=== PATIENT | female | born 1975 | race Caucasian/White ===

== ENCOUNTER 2017-06-25 13:02 | Inpatient (IN) | payer OTHER ==
[2017-06-25 13:27] VITALS: BMI 29.0
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
[2017-06-25] MEDS ORDERED: P-EPHED 60MG/TRIPROLIDI 2.5MG TABLET PO PRN (14:38)
[2017-06-25] MEDS ORDERED: MAGNESIUM CITRATE 300 ML BOTTLE PO PRN (14:38)
[2017-06-25] MEDS ORDERED: MENTHOL/PHENOL 1 EACH UD MM PRN (14:38)
[2017-06-25] MEDS ORDERED: guaiFENesin/D-METHORPHAN HB 10 ML UNIT-DOSE CUPS PO PRN (14:38)
[2017-06-25] MEDS ORDERED: LOPERAMIDE HCL 2 MG CAPSULE PO PRN (14:38)
[2017-06-25] MEDS ORDERED: MAGNESIUM HYDROX 2400MG/30ML ORAL SUSPENSION 30 ML CUP PO PRN (14:38)
[2017-06-25] MEDS ORDERED: MAG HYDROX/AL HYDROX/SIMETH 30 ML UNIT-DOSE CUP PO PRN (14:38)
[2017-06-25] MEDS ORDERED: hydrOXYzine PAMOATE 50 MG CAPSULE (FP) PO PRN (14:38)
[2017-06-25] MEDS ORDERED: chlordiazePOXIDE HCL 25 MG CAPSULE PO ONE (15:01)
[2017-06-25] MEDS ORDERED: METHADONE HCL 10 MG TABLET (FOR DETOX USE ONLY) PO ONE ×2 (15:01→23:00)
[2017-06-25] MEDS: chlordiazePOXIDE HCL 25 MG CAPSULE PO SCH ×2 (17:18→22:05)
[2017-06-25] MEDS: NICOTINE 21 MG/24 HOURS TOPICAL PATCH TD SCH (17:24)
[2017-06-25] MEDS: diphenhydrAMINE HCL 50 MG CAPSULE PO PRN (22:05)
[2017-06-25] MEDS: THIAMINE HCL 100 MG TABLET (FP) PO SCH (22:05)
[2017-06-25 23:30] LABS: URINE APPEARANCE CLEAR; URINE BILIRUBIN NEGATIVE (NEGATIVE); URINE BLOOD NEGATIVE (NEGATIVE); URINE COLOR LTYELLOW; URINE GLUCOSE (UA) NEGATIVE (NEGATIVE); URINE KETONE NEGATIVE (NEGATIVE); URINE LEUK ESTERASE NEGATIVE (NEGATIVE); URINE NITRITE NEGATIVE (NEGATIVE); URINE PROTEIN NEGATIVE (NEGATIVE); URINE UROBILINOGEN NEGATIVE mg/dL (0.2-1.0)
[2017-06-26] MEDS: IBUPROFEN 400 MG TABLET (FP) PO PRN ×2 (04:18→10:43)
[2017-06-26] MEDS: chlordiazePOXIDE HCL 25 MG CAPSULE PO PRN (04:18)
[2017-06-26] MEDS: chlordiazePOXIDE HCL 25 MG CAPSULE PO SCH ×4 (05:14→22:03)
[2017-06-26] MEDS: VERAPAMIL HCL 40 MG TABLET (FP) PO SCH (06:20)
--- NOTE | 2017-06-26 09:32 | CONSULT ---
[facility] Psychiatric Consult - Data Date of interview: 06/26/17 Admission source: [facility] Identifying data: This is 41 years old female with no psychiatric hospitalization history intoxicated with: Alcohol, Crack, Opioids and Nicotine Substance Abuse History: - Smoking Cessation. Smoking history: Current every day smoker. Have you smoked in the past 12 months: Yes. Aproximately how many cigarettes per day: 20. Hx Chewing Tobacco Use: No. Initiated information on smoking cessation: Yes. 'Breaking Loose' booklet given: 06/25/17. - Substance & Tx. History. Hx Alcohol Use: Yes. Hx Substance Use: Yes. Substance Use Type : Alcohol, Cocaine, Heroin. Hx Substance Use Treatment: Yes ([facility] to 05/01/17). - Substances Abused. Heroin. Route: Inhalation. Frequency: Daily. Amount used: 20 bags. Age of first use: 41. Date of Last Use: 06/24/17. Alcohol. Route: Oral. Frequency: Daily. Amount used: 4-5 24 oz beers. Age of first use: 18. Date of Last Use: 06/23/17. Crack. Route: Smoking. Frequency: Daily. Amount used: $20. Age of first use: 39. Date of Last Use: 06/23/17 Medical History: HTN, LBP, Psychiatric History: Patient reports history of depression and anxiety, reports no medications taking prior to admission Physical/Sexual Abuse/Trauma History: Denies Additional Comment: Observation. [facility] Care Protocol Mental Status Exam - Mental Status Exam Alert and Oriented to: Person Cognitive Function: Fair Patient Appearance: Unkempt Mood: Sad Affect: Flat Patient Behavior: Sedated Speech Pattern: Delayed Voice Loudness: Mildly Soft/Quiet Thought Process: Circumstantial Thought Disorder: Being Controlled Hallucinations: Denies Suicidal Ideation: Denies Homicidal Ideation: Denies Insight/Judgement: Fair Sleep: Difficulty falling asleep Appetite: Fair Muscle strength/Tone: Normal Gait/Station: Shuffling Additional Comments: Observation. [facility] Care Protocol Psychiatric Findings - Problem List ([place] 1, 2,3) (1) Alcohol dependence with uncomplicated withdrawal Current Visit: Yes Status: Acute (2) Anxiety and depression Current Visit: Yes Status: Acute (3) Opioid dependence with withdrawal Current Visit: Yes Status: Acute (4) Nicotine dependence Current Visit: Yes Status: Acute (5) Drug-induced mood disorder Current Visit: Yes Status: Acute - Initial Treatment Plan Initial Treatment Plan: Observation. [facility] Care Protocol
[2017-06-26] MEDS ORDERED: METHADONE HCL 10 MG TABLET (FOR DETOX USE ONLY) PO SCH (10:00)
[2017-06-26 10:14] LABS: ALBUMIN 3.8 g/dl (3.4-5.0); ALK PHOS 61 U/L (45-117); ANION GAP 8 (8-16); BILIRUBIN,TOTAL 0.3 mg/dL (0.2-1.0); CALCIUM 9.4 mg/dL (8.5-10.1); CO2 26 mmol/L (21-32); CREATININE 0.9 mg/dL (0.55-1.02); GLUCOSE,RANDOM 97 mg/dL (74-106); SGOT/AST 12 U/L (15-37); SGPT/ALT 19 U/L (12-78)
[2017-06-26 10:19] LABS: MEAN CELL VOLUME 58.9 fl (80-96); PLATELET COUNT 281 K/MM3 (134-434); RDW 19.4 % (11.6-15.6); WHITE BLOOD COUNT 7.9 K/mm3 (4.0-10.0)
[2017-06-26 10:24] LABS: MCH 18.9 pg (25.7-33.7)
[2017-06-26] MEDS: LISINOPRIL 10 MG TABLET (FP) PO SCH (10:43)
[2017-06-26] MEDS: NICOTINE 21 MG/24 HOURS TOPICAL PATCH TD SCH (10:44)
[2017-06-26] MEDS: PRENATAL VITAMINS W/ FOLIC ACID TABLET (FP) PO SCH (10:44)
[2017-06-26] MEDS: NICOTINE POLACRILEX 2 MG GUM BUC PRN (10:45)
[2017-06-26] MEDS ORDERED: RANITIDINE HCL 150 MG TABLET (FP) PO ONE (10:46)
[2017-06-26] MEDS ORDERED: NAPROXEN 500 MG TABLET (FP) PO ONE (10:46)
[2017-06-26 11:10] LABS: ANISOCYTOSIS 1+; HYPOCHROMIA 1+; PLATELET ESTIMATE ADEQUATE (NORMAL)
[2017-06-26 11:11] LABS: MICROCYTOSIS 1+; OVALOCYTES 1+
[2017-06-26] MEDS: LIDOCAINE 5% TOPICAL PATCH TP SCH (11:20)
[2017-06-26] MEDS: CYCLOBENZAPRINE HCL 10 MG TABLET (FP) PO PRN ×2 (11:43→22:03)
--- NOTE | 2017-06-26 12:59 | EKG ---
Test Reason : Blood Pressure : / mmHG Vent. Rate : 074 BPM Atrial Rate : 074 BPM P-R Int : 132 ms QRS Dur : 090 ms QT Int : 390 ms P-R-T Axes : 042 060 062 degrees QTc Int : 432 ms NORMAL SINUS RHYTHM NORMAL ECG NO PREVIOUS ECGS AVAILABLE Confirmed by CADY MILLER, MICHAEL ([id number]) on 06/26/2017 12:59:12 PM Referred By: Francois Lazaro Confirmed By:MICHAEL LAZAR MD
[2017-06-26] MEDS: LIDOCAINE PATCH REMOVAL MC SCH (21:51)
[2017-06-26] MEDS: diphenhydrAMINE HCL 50 MG CAPSULE PO PRN (22:03)
[2017-06-26] MEDS: NAPROXEN 500 MG TABLET (FP) PO SCH (22:03)
[2017-06-26] MEDS: THIAMINE HCL 100 MG TABLET (FP) PO SCH (22:04)
[2017-06-26] MEDS: RANITIDINE HCL 150 MG TABLET (FP) PO SCH (22:05)
[2017-06-27] MEDS: CYCLOBENZAPRINE HCL 10 MG TABLET (FP) PO PRN ×3 (05:14→22:13)
[2017-06-27] MEDS: NICOTINE POLACRILEX 2 MG GUM BUC PRN ×3 (05:14→14:11)
[2017-06-27] MEDS: chlordiazePOXIDE HCL 25 MG CAPSULE PO SCH ×2 (05:14→10:08)
[2017-06-27] MEDS: ACETAMINOPHEN 325 MG TABLET (FP) PO PRN (05:15)
[2017-06-27] MEDS: VERAPAMIL HCL 40 MG TABLET (FP) PO SCH (07:30)
[2017-06-27] MEDS: PRENATAL VITAMINS W/ FOLIC ACID TABLET (FP) PO SCH (10:07)
[2017-06-27] MEDS: METHADONE HCL 5 MG TABLET (FOR DETOX USE ONLY) PO SCH (10:07)
[2017-06-27] MEDS: RANITIDINE HCL 150 MG TABLET (FP) PO SCH ×2 (10:08→22:14)
[2017-06-27] MEDS: LISINOPRIL 10 MG TABLET (FP) PO SCH (10:08)
[2017-06-27] MEDS: NAPROXEN 500 MG TABLET (FP) PO SCH ×2 (10:09→22:14)
[2017-06-27] MEDS: NICOTINE 21 MG/24 HOURS TOPICAL PATCH TD SCH (10:10)
[2017-06-27] MEDS: LIDOCAINE 5% TOPICAL PATCH TP SCH (10:10)
--- NOTE | 2017-06-27 11:35 | PN ---
[facility] CIWA - CIWA Score Nausea/Vomitin-No Nausea/No Vomiting Muscle Tremors: 4-Moderate,w/Arms Extend Anxiety: 3 Agitation: 4-Moderately Restless Paroxysmal Sweats: 3 Orientation: 0-Oriented Tacttile Disturbances: 0-None Auditory Disturbances: 0-None Visual Disturbances: 0-None Headache: 1-Very Mild CIWA-Ar Total Score: 15 S COWS - Scale Resting Pulse: 0= [place] 80 or Below Sweatin=Flushed/Facial Moisture Restless Observation: 1= Difficult to Sit Still Pupil Size: 0= Normal to Room Light Bone or Joint Aches: 2= Severe Diffuse Aches Runny Nose/ Eye Tearin= Runny Nose/Eyes GI Upset > 30mins: 2= Nausea/Diarrhea Tremor Observation of Outstretched Hands: 2= Slight Tremor Visible Yawning Observation: 2= >3x During Session Anxiety or Irritability: 2=Irritable/Anxious Goose Flesh Skin: 3=Piloerection COWS Score: 18 [facility] Progress Note (SOAP) Subjective: back pain sweats shakes interrupted sleep agitation irriable Objective: 06/26/17 11:33 Vital Signs - 24 hr 06/26/17 06/26/17 06/26/17 13:54 17:50 22:00 Temperature 98.1 F 97.7 F 97.7 F Pulse Rate 88 64 87 Respiratory 18 18 20 Rate Blood Pressure 138/89 103/60 150/98 06/27/17 06/27/17 06/27/17 00:30 03:30 06:17 Temperature 96.2 F L Pulse Rate 68 Respiratory 18 18 16 Rate Blood Pressure 137/72 06/27/17 09:34 Temperature 97.3 F L Pulse Rate 86 Respiratory 18 Rate Blood Pressure 143/91 Laboratory Tests 06/25/17 06/26/17 06/26/17 20:43 06:00 06:00 WBC 7.9 RBC 5.52 H Hgb 10.4 L Hct 32.5 MCV 58.9 L MCH 18.9 L MCHC 32.0 RDW 19.4 H Plt Count 281 MPV 9.0 Platelet Estimate Adequate Platelet Comment No clumping noted Hypochromic-Microcytic 1+ Anisocytosis 1+ Microcytosis 1+ Ovalocytes 1+ Sodium 140 Potassium 4.3 Chloride 106 Carbon Dioxide 26 Anion Gap 8 BUN 15 Creatinine 0.9 Creat Clearance w eGFR > 60 Random Glucose 97 Calcium 9.4 Total Bilirubin 0.3 AST 12 L ALT 19 Alkaline Phosphatase 61 Total Protein 7.0 Albumin 3.8 Urine Color Ltyellow Urine Appearance Clear Urine pH 5.0 Ur Specific [place] 1.025 Urine Protein Negative Urine Glucose (UA) Negative Urine Ketones Negative Urine Blood Negative Urine Nitrite Negative Urine Bilirubin Negative Urine Urobilinogen Negative Ur Leukocyte Esterase Negative RPR Titer 06/26/17 06:00 WBC RBC Hgb Hct MCV MCH MCHC RDW Plt Count MPV Platelet Estimate Platelet Comment Hypochromic-Microcytic Anisocytosis Microcytosis Ovalocytes Sodium Potassium Chloride Carbon Dioxide Anion Gap BUN Creatinine Creat Clearance w eGFR Random Glucose Calcium Total Bilirubin AST ALT Alkaline Phosphatase Total Protein Albumin Urine Color Urine Appearance Urine pH Ur Specific [place] Urine Protein Urine Glucose (UA) Urine Ketones Urine Blood Urine Nitrite Urine Bilirubin Urine Urobilinogen Ur Leukocyte Esterase RPR Titer Nonreactive awake/alert lying in bed no acute distress Assessment: 06/26/17 11:34 withdrawal sx Plan: continue detox increase fluids motrin 600mg prn analgesic balm lidocaine patch
--- NOTE | 2017-06-27 11:36 | PN ---
[facility] CIWA - CIWA Score Nausea/Vomitin-No Nausea/No Vomiting Muscle Tremors: 3 Anxiety: 2 Agitation: 3 Paroxysmal Sweats: 3 Orientation: 0-Oriented Tacttile Disturbances: 0-None Auditory Disturbances: 0-None Visual Disturbances: 0-None Headache: 1-Very Mild CIWA-Ar Total Score: 12 [facility] COWS - Scale Resting Pulse: 1= [place] 81-100 Sweatin=Flushed/Facial Moisture Restless Observation: 1= Difficult to Sit Still Pupil Size: 0= Normal to Room Light Bone or Joint Aches: 2= Severe Diffuse Aches Runny Nose/ Eye Tearin= Nasal Congestion GI Upset > 30mins: 1= Stomach Cramp Tremor Observation of Outstretched Hands: 2= Slight Tremor Visible Yawning Observation: 1= 1-2x During Session Anxiety or Irritability: 2=Irritable/Anxious Goose Flesh Skin: 3=Piloerection COWS Score: 16 S Progress Note (SOAP) Subjective: agitation anxiety sweats shakes body aches Objective: 06/27/17 11:35 Vital Signs Temperature 97.3 F L 06/27/17 09:34 Pulse Rate 86 06/27/17 09:34 Respiratory Rate 18 06/27/17 09:34 Blood Pressure 143/91 06/27/17 09:34 O2 Sat by Pulse Oximetry (%) Laboratory Tests 06/25/17 06/26/17 06/26/17 20:43 06:00 06:00 WBC 7.9 RBC 5.52 H Hgb 10.4 L Hct 32.5 MCV 58.9 L MCH 18.9 L MCHC 32.0 RDW 19.4 H Plt Count 281 MPV 9.0 Platelet Estimate Adequate Platelet Comment No clumping noted Hypochromic-Microcytic 1+ Anisocytosis 1+ Microcytosis 1+ Ovalocytes 1+ Sodium 140 Potassium 4.3 Chloride 106 Carbon Dioxide 26 Anion Gap 8 BUN 15 Creatinine 0.9 Creat Clearance w eGFR > 60 Random Glucose 97 Calcium 9.4 Total Bilirubin 0.3 AST 12 L ALT 19 Alkaline Phosphatase 61 Total Protein 7.0 Albumin 3.8 Urine Color Ltyellow Urine Appearance Clear Urine pH 5.0 Ur Specific [place] 1.025 Urine Protein Negative Urine Glucose (UA) Negative Urine Ketones Negative Urine Blood Negative Urine Nitrite Negative Urine Bilirubin Negative Urine Urobilinogen Negative Ur Leukocyte Esterase Negative RPR Titer 06/26/17 06:00 WBC RBC Hgb Hct MCV MCH MCHC RDW Plt Count MPV Platelet Estimate Platelet Comment Hypochromic-Microcytic Anisocytosis Microcytosis Ovalocytes Sodium Potassium Chloride Carbon Dioxide Anion Gap BUN Creatinine Creat Clearance w eGFR Random Glucose Calcium Total Bilirubin AST ALT Alkaline Phosphatase Total Protein Albumin Urine Color Urine Appearance Urine pH Ur Specific [place] Urine Protein Urine Glucose (UA) Urine Ketones Urine Blood Urine Nitrite Urine Bilirubin Urine Urobilinogen Ur Leukocyte Esterase RPR Titer Nonreactive awake/alert ambulating no acute distress Assessment: 06/27/17 11:36 withdrawal sx Plan: continue detox increase fluids
[2017-06-27] MEDS ORDERED: HYDROCORTISONE 1% TOPICAL CREAM 30 GM TUBE TP PRN (12:28)
[2017-06-27] MEDS: chlordiazePOXIDE HCL 25 MG CAPSULE PO PRN (14:11)
[2017-06-27] MEDS: chlordiazePOXIDE 5 MG CAPSULE PO SCH ×2 (17:00→22:14)
[2017-06-27] MEDS: METHYL SALICYLATE/MENTHOL OINT 30 GM TUBE TP SCH (22:13)
[2017-06-27] MEDS: diphenhydrAMINE HCL 50 MG CAPSULE PO PRN (22:13)
[2017-06-27] MEDS: THIAMINE HCL 100 MG TABLET (FP) PO SCH (22:14)
[2017-06-27] MEDS: LIDOCAINE PATCH REMOVAL MC SCH (22:14)
[2017-06-28] MEDS: ACETAMINOPHEN 325 MG TABLET (FP) PO PRN (03:51)
[2017-06-28] MEDS: chlordiazePOXIDE HCL 25 MG CAPSULE PO PRN ×2 (03:57→14:40)
[2017-06-28] MEDS: chlordiazePOXIDE 5 MG CAPSULE PO SCH ×2 (05:45→10:29)
[2017-06-28] MEDS: CYCLOBENZAPRINE HCL 10 MG TABLET (FP) PO PRN ×2 (05:47→22:18)
[2017-06-28] MEDS: VERAPAMIL HCL 40 MG TABLET (FP) PO SCH (07:05)
[2017-06-28] MEDS: METHYL SALICYLATE/MENTHOL OINT 30 GM TUBE TP SCH (10:28)
[2017-06-28] MEDS: LIDOCAINE 5% TOPICAL PATCH TP SCH (10:29)
[2017-06-28] MEDS: LISINOPRIL 10 MG TABLET (FP) PO SCH (10:29)
[2017-06-28] MEDS: METHADONE HCL 5 MG TABLET (FOR DETOX USE ONLY) PO SCH (10:29)
[2017-06-28] MEDS: RANITIDINE HCL 150 MG TABLET (FP) PO SCH ×2 (10:29→22:19)
[2017-06-28] MEDS: NAPROXEN 500 MG TABLET (FP) PO SCH ×2 (10:30→22:18)
[2017-06-28] MEDS: PRENATAL VITAMINS W/ FOLIC ACID TABLET (FP) PO SCH (10:30)
[2017-06-28] MEDS: NICOTINE 21 MG/24 HOURS TOPICAL PATCH TD SCH (10:30)
[2017-06-28] MEDS: NICOTINE POLACRILEX 2 MG GUM BUC PRN ×2 (10:30→22:20)
--- NOTE | 2017-06-28 12:14 | PN ---
[facility] Progress Note (SOAP) Subjective: chronic backache sweats irritable Objective: 06/28/17 12:13 Vital Signs Temperature 97.7 F 06/28/17 10:00 Pulse Rate 95 H 06/28/17 10:00 Respiratory Rate 20 06/28/17 10:00 Blood Pressure 135/90 06/28/17 10:00 O2 Sat by Pulse Oximetry (%) awake/alert ambulating no acute distress Assessment: 06/28/17 12:13 withdrawal sx Plan: continue detox increase fluids
[2017-06-28] MEDS: chlordiazePOXIDE HCL 10 MG CAPSULE PO SCH ×2 (17:33→22:18)
[2017-06-28] MEDS: LIDOCAINE PATCH REMOVAL MC SCH (22:18)
[2017-06-28] MEDS: THIAMINE HCL 100 MG TABLET (FP) PO SCH (22:19)
[2017-06-29] MEDS: chlordiazePOXIDE HCL 10 MG CAPSULE PO SCH ×2 (06:16→10:39)
[2017-06-29] MEDS: VERAPAMIL HCL 40 MG TABLET (FP) PO SCH (07:00)
[2017-06-29] MEDS ORDERED: METHADONE HCL 10 MG TABLET (FOR DETOX USE ONLY) PO SCH (10:00)
[2017-06-29] MEDS: NAPROXEN 500 MG TABLET (FP) PO SCH ×2 (10:39→22:17)
[2017-06-29] MEDS: RANITIDINE HCL 150 MG TABLET (FP) PO SCH ×2 (10:40→22:17)
[2017-06-29] MEDS: PRENATAL VITAMINS W/ FOLIC ACID TABLET (FP) PO SCH (10:40)
[2017-06-29] MEDS: NICOTINE 21 MG/24 HOURS TOPICAL PATCH TD SCH (10:40)
[2017-06-29] MEDS: LIDOCAINE 5% TOPICAL PATCH TP SCH (10:41)
[2017-06-29] MEDS: LISINOPRIL 10 MG TABLET (FP) PO SCH (10:42)
[2017-06-29] MEDS: METHYL SALICYLATE/MENTHOL OINT 30 GM TUBE TP SCH (10:42)
[2017-06-29] MEDS: NICOTINE POLACRILEX 2 MG GUM BUC PRN (10:46)
--- NOTE | 2017-06-29 13:33 | PN ---
[facility] Progress Note (SOAP) Subjective: ALERT,IRRITABLE,ANXIOUS,INTERRUPTED SLEEP Objective: 06/29/17 13:32 Vital Signs Temperature 98.6 F 06/29/17 10:09 Pulse Rate 103 H 06/29/17 10:09 Respiratory Rate 18 06/29/17 10:09 Blood Pressure 109/71 06/29/17 10:09 O2 Sat by Pulse Oximetry (%) Assessment: 06/29/17 13:33 WITHDRAWAL SYMPTOM Plan: CONTINUE DETOX
[2017-06-29] MEDS: LIDOCAINE PATCH REMOVAL MC SCH (22:17)
[2017-06-29] MEDS: THIAMINE HCL 100 MG TABLET (FP) PO SCH (22:17)
[2017-06-30] MEDS ORDERED: METHADONE HCL 5 MG TABLET (FOR DETOX USE ONLY) PO SCH (06:00)
[2017-06-30] MEDS: VERAPAMIL HCL 40 MG TABLET (FP) PO SCH (06:18)
[2017-06-30 06:40] VITALS: BP 113/60; PULSE 74; TEMP 98
--- NOTE | 2017-06-30 09:22 | DS ---
[facility] Detox Discharge Summary Admission Date: 06/25/17 Discharge Date: 06/30/17 - History Present History: Cocaine Dependence, Opioid Dependence Additional Comments: FOLLOW UP WITH AFTER CARE PROGRAM ARRANGEMENT Pertinent Past History: ESSENTIAL HYPERTENSION ANXIETY AND DEPRESSION LOW BACK PAIN - Physical Exam Results Vital Signs: Vital Signs Temperature 98 F 06/30/17 06:39 Pulse Rate 74 06/30/17 06:39 Respiratory Rate 18 06/30/17 06:39 Blood Pressure 113/60 06/30/17 06:39 O2 Sat by Pulse Oximetry (%) Pertinent Admission Physical Exam Findings: WITHDRAWAL SYMPTOM - Treatment Hospital Course: Detox Protocol Followed, Detoxed Safely, Responded well, Discharged Condition Good Patient has Accepted a Rehab Referral to: DECLINED - Medication Discharge Medications: Ambulatory Orders Lisinopril [Prinivil] 10 mg PO DAILY 06/25/17 Verapamil HCl [Calan] 0 mg PO DAILY 06/25/17 - Diagnosis (1) Opioid dependence with withdrawal Current Visit: Yes Status: Acute (2) Alcohol dependence with uncomplicated withdrawal Current Visit: Yes Status: Acute (3) Essential hypertension Current Visit: Yes Status: Acute (4) Anxiety and depression Current Visit: Yes Status: Acute (5) Low back pain Current Visit: Yes Status: Acute - AMA Did Patient Leave Against Medical Advice: No
[2017-06-30] MEDS: RANITIDINE HCL 150 MG TABLET (FP) PO SCH (09:23)
[2017-06-30] MEDS: NAPROXEN 500 MG TABLET (FP) PO SCH (09:23)
[2017-06-30] MEDS: PRENATAL VITAMINS W/ FOLIC ACID TABLET (FP) PO SCH (09:23)
[2017-06-30] MEDS: LIDOCAINE 5% TOPICAL PATCH TP SCH (09:24)
[2017-06-30] MEDS: METHYL SALICYLATE/MENTHOL OINT 30 GM TUBE TP SCH (09:24)
[2017-06-30] MEDS: NICOTINE 21 MG/24 HOURS TOPICAL PATCH TD SCH (09:24)
[2017-06-30] MEDS: LISINOPRIL 10 MG TABLET (FP) PO SCH (09:25)
[2017-06-30] MEDS: NICOTINE POLACRILEX 2 MG GUM BUC PRN (09:25)
== END 2017-06-30 09:46 | disposition home or self-care (01) | DRG 773 ==
LOC: YASAS 13:02 → Y6N 14:53
PROVIDERS: ADMIT Internal Medicine; ATTEND Internal Medicine
PROC: HZ2ZZZZ Detoxification Services for Substance Abuse Treatment (ICD-10-PCS; principal; 2017-06-25)
DX: F11.23 Opioid dependence with withdrawal (principal); F10.230 Alcohol dependence with withdrawal, uncomplicated; F14.20 Cocaine dependence, uncomplicated; F17.210 Nicotine dependence, cigarettes, uncomplicated; F41.9 Anxiety disorder, unspecified; F32.9 Major depressive disorder, single episode, unspecified; F19.24 Other psychoactive substance dependence with psychoactive substance-induced mood disorder; I10 Essential (primary) hypertension; M54.5 Low back pain; Z88.1 Allergy status to other antibiotic agents
CPT/HCPCS: 36415; 71020-TC; 80053; 81003; 85027; 86593; 93005; 93010